=== PATIENT | male | born 1995 | race Caucasian/White ===

== ENCOUNTER 2016-10-16 22:37 | Emergency (ER) | payer OTHER ==
--- NOTE | ~2016-10-16 | CR142 ---
[facility] A Service of [facility] RADIOLOGY TEXT RESULTS PATIENT: YAMEL BRANNON LOCATION: SED : 95 UNIT #: [id number] AGE: [address]: Skylar Andrews PAC SEX: M ORDER DR: [id number] [place] [id number] MR#: [id number] Acc #: [id number] NAME: YAMEL BRANNON : 1995 SEX: M STUDY DATE/TIME: 10/16/2016 22:38 UNIT: SED ROOM: STUDY DESCRIPTION: CR Hand Min 3 Views Rt Attending Physician: Skylar Andrews Pa-C Ordering Physician: Skylar Andrews Pa-C Primary Care Physician: No Primary Care Physician MEDICAL IMAGING REPORT This report is preliminary unless electronic signature is present. EXAM Right hand series INDICATIONS Right hand pain and swelling after punching wall today. PROCEDURE 3 views of the right hand COMPARISON None. FINDINGS No fracture. No dislocation. IMPRESSION No acute findings. Dictated by... Yury Turner M.D. THIS IS AN ELECTRONICALLY VERIFIED REPORT Yury Turner M.D. at 10/17/2016 10:15 PM KIANNA/margareth TD: 10/17/2016 02:13 JOB #: [id number] MEDICAL IMAGING REPORT [facility] A Service of [facility] RADIOLOGY TEXT RESULTS PATIENT: YAMEL BRANNON LOCATION: SED : 95 UNIT #: [id number] AGE: [address]: Skylar Andrews PAC SEX: M ORDER DR: Page 1 of 1
[~2016-10-16 22:37] MED LIST: ALBUTEROL17 GM INH; BENZONATATE PO; EC-NAPROSYN500 MG PO; EFFEXOR75 M1 PO; FLEXERIL10 M1 PO; IBUPROFEN800 MG PO; NAPROSYN-EC500 M1 PO; NAPROSYN500 MG PO; NO MEDICATIONS; PHENERGAN DM PO; PREDNISONE PO; PREDNISONE50 MG PO; PROMETHAZINE D118 ML PO; VOLTAREN75 MG PO; ZITHROMAX PO; ZITHROMAX1 G/PKT PO; ZOLOFT50 MG PO
== END 2016-10-16 23:11 | disposition left against medical advice (07) ==
LOC: SED 22:37
DX: S60.221A Contusion of right hand, initial encounter (principal); F17.210 Nicotine dependence, cigarettes, uncomplicated; Z88.0 Allergy status to penicillin; W22.8XXA Striking against or struck by other objects, initial encounter; Y92.098 Other place in other non-institutional residence as the place of occurrence of the external cause
CPT/HCPCS: 73130; 99283

== ENCOUNTER 2016-10-17 11:47 | Emergency (ER) | payer OTHER | END 2016-10-17 12:14 | disposition home or self-care (01) | LOC: CED 11:47 | DX: S63.501A Unspecified sprain of right wrist, initial encounter (principal); S60.221A Contusion of right hand, initial encounter; J45.909 Unspecified asthma, uncomplicated; F17.210 Nicotine dependence, cigarettes, uncomplicated; Z88.0 Allergy status to penicillin; W22.8XXA Striking against or struck by other objects, initial encounter; Y92.009 Unspecified place in unspecified non-institutional (private) residence as the place of occurrence of the external cause; Z23 Encounter for immunization | CPT/HCPCS: 29125; 90471; 90715; 96372; 99283; J1885 ==